=== PATIENT | female | born 1970 | race Native Hawaiian/Other Pacific Islander ===

== ENCOUNTER 2016-10-19 12:47 | Emergency (ER) | payer OTHER ==
[~2016-10-19] VITALS: Ht 167.6 cm; Wt 90.7 kg
[~2016-10-19 12:47] MED LIST: ALBU90AE13 INH; CLON0.5T36 PO; DULO60CA2 PO; HYDR10TA47 PO; NUCYNTA ER100 MG PO; TIZA4TAB5 PO
[2016-10-19 13:09] VITALS: TEMP 98.6
[2016-10-19] MEDS ORDERED: AMRIX30 MG OR (13:11)
[2016-10-19 14:06] VITALS: BP 148/88
== END 2016-10-19 14:07 | disposition home or self-care (01) ==
LOC: ED 12:47
PROC: 2W3JX1Z Immobilization of Right Finger using Splint (ICD-10-PCS; principal; 2016-10-19)
DX: S60.031A Contusion of right middle finger without damage to nail, initial encounter (principal); S61.202A Unspecified open wound of right middle finger without damage to nail, initial encounter; S62.632A Displaced fracture of distal phalanx of right middle finger, initial encounter for closed fracture; W23.0XXA Caught, crushed, jammed, or pinched between moving objects, initial encounter; Y92.098 Other place in other non-institutional residence as the place of occurrence of the external cause
CPT/HCPCS: 99283; J1100; J1200; J1885; J2550

== ENCOUNTER 2016-11-10 07:16 | Day surgery (SDC) | payer OTHER ==
[~2016-11-10 07:16] MED LIST changes: +AMRIX30 MG OR
== END 2016-11-10 09:40 | disposition home or self-care (01) ==
LOC: OR 07:16
PROC: 0DB68ZZ Excision of Stomach, Via Natural or Artificial Opening Endoscopic (ICD-10-PCS; principal; 2016-11-10)
DX: K29.50 Unspecified chronic gastritis without bleeding (principal); R10.13 Epigastric pain; R13.19 Other dysphagia
CPT/HCPCS: J2001; J2704

== ENCOUNTER 2017-10-14 14:12 | Outpatient (CLI) | payer OTHER | END 2017-10-14 22:05 | disposition home or self-care (01) | LOC: MRI 14:12 | DX: M48.02 Spinal stenosis, cervical region (principal); M54.12 Radiculopathy, cervical region; M96.1 Postlaminectomy syndrome, not elsewhere classified; M54.5 Low back pain; M47.892 Other spondylosis, cervical region ==

== ENCOUNTER 2022-04-01 10:41 | Outpatient (CLI) | payer OTHER | END 2022-04-01 18:55 | disposition home or self-care (01) | LOC: MRI 10:41 | PROVIDERS: ATTEND Pain Medicine Interventional Pain Medicine | DX: M54.17 Radiculopathy, lumbosacral region (principal) ==

== ENCOUNTER 2023-02-08 09:39 | Outpatient (CLI) | payer OTHER | END 2023-02-08 19:00 | disposition home or self-care (01) | LOC: MRI 09:39 | PROVIDERS: ATTEND Orthopaedic Surgery | DX: M25.562 Pain in left knee (principal); M25.462 Effusion, left knee; S83.232A Complex tear of medial meniscus, current injury, left knee, initial encounter; Y92.89 Other specified places as the place of occurrence of the external cause ==